=== PATIENT | male | born 1995 | race Caucasian/White ===

== ENCOUNTER 2017-06-24 18:17 | Emergency (ER) | payer SELFPAY ==
[~2017-06-24] VITALS: Ht 182.9 cm; Wt 70.0 kg
[2017-06-24 18:41] VITALS: BP 127/64; PULSE 77; RESP 16; TEMP 99; O2SAT 98
[2017-06-24] MEDS ORDERED: IBUP1TAB7 PO (19:27)
[2017-06-24] MEDS ORDERED: CYCL10TA PO (19:27)
[2017-06-24] MEDS ORDERED: KETOROLAC TROMETHAMINE 60 MG/2 ML (IM) VIAL IM ONE (19:30)
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
== END 2017-06-24 19:50 | disposition home or self-care (01) ==
LOC: NEPK 18:17
DX: S39.012A Strain of muscle, fascia and tendon of lower back, initial encounter (principal); M54.6 Pain in thoracic spine; X50.0XXA Overexertion from strenuous movement or load, initial encounter; Y93.H3 Activity, building and construction
CPT/HCPCS: 96372; 99283; J1885